=== PATIENT | male | born 1970 | race Caucasian/White ===

== ENCOUNTER 2020-02-28 18:29 | Inpatient (IN) | payer MEDICAID ==
[~2020-02-28] VITALS: Ht 188 cm; Wt 131.5 kg
--- NOTE | 2020-02-28 18:56 | NUR ---
Patient awake alert pain to upper abdomen ,EKG ,hooked in the monitor ,lab drw ,patient non distress @ this time continue to monitor .
[2020-02-28 18:57] LABS: BASOPHILS % (AUTO) 0.3 % (0.0-2.0); EOSINOPHILS % (AUTO) 2.9 % (0.0-6.0); HEMATOCRIT 47 % (39-51); HEMOGLOBIN 15.8 g/dL (13.5-17.5); LYMPHOCYTES # (AUTO) 2.1 /CMM (0.8-4.8); MEAN CORPUSCULAR HGB CONC 34 g/dl (31.0-36.0); MEAN CORPUSCULAR VOLUME 93 fL (80-96); MONOCYTES # (AUTO) 0.5 /CMM (0.1-1.30); MONOCYTES % (AUTO) 6.7 % (2.0-12.0); NEUTROPHILS # (AUTO) 4.3 /CMM (1.8-8.9); NEUTROPHILS % (AUTO) 60.1 % (43.0-81.0); PLATELET COUNT (AUTO) 278 /CMM (150-450); RED BLOOD CELL COUNT(AUTO) 5.01 MIL/uL (4.5-6.0); WHITE BLOOD COUNT (AUTO) 7.1 K/uL (4.3-11.0)
[2020-02-28 19:03] LABS: CARBON DIOXIDE 30 mmol/L (21-32); CHLORIDE 103 mmol/L (98-107); CREATININE 1.1 mg/dL (0.6-1.3); GLUCOSE 119 mg/dL (74-106); POTASSIUM 4.1 mmol/L (3.5-5.1); SODIUM SERUM 143 mmol/L (136-145); UREA NITROGEN, BLOOD 11 mg/dL (7-18)
[2020-02-28 19:09] LABS: ALANINE AMINOTRANSFERASE 30 U/L (12-78); ALBUMIN 4.1 g/dL (3.4-5.0); ALKALINE PHOSPHATASE 57 U/L (46-116); ASPARTATE AMINOTRANSFERASE 20 U/L (15-37); BILIRUBIN,DIRECT 0.2 mg/dL (0.0-0.2); BILIRUBIN,TOTAL 0.8 mg/dL (0.2-1.0); TOTAL PROTEIN, SERUM 7.3 g/dL (6.4-8.2)
--- NOTE | 2020-02-28 19:28 | NUR ---
DR. HAILE SPEAKING WITH DR. LOJA REGARDING ADMISSION
[2020-02-28] MEDS ORDERED: NITROGLYCERIN PACKET 1 GM PACKET TD ONE (19:30)
[2020-02-28] MEDS ORDERED: ASPIRIN 325 MG TABLET PO ONE (19:30)
[2020-02-28] MEDS ORDERED: ASPIRIN EC 325 MG TABLET.DR PO ONE (19:31)
[2020-02-28] MEDS ORDERED: NITROGLYCERIN PACKET 1 GM PACKET ONE (19:31)
[2020-02-28] MEDS ORDERED: ASPIRIN 81 MG TAB.CHEW ONE (19:41)
--- NOTE | 2020-02-28 19:44 | NUR ---
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 MD NOTIFIED.
--- NOTE | 2020-02-28 19:59 | NUR ---
covid swab collected and sent to lab.
[2020-02-28] MEDS ORDERED: ASPIRIN 81 MG TAB.CHEW PO ONE (20:00)
--- NOTE | 2020-02-28 20:22 | NUR ---
PT COVID NEGATIVE PER LAB
--- NOTE | 2020-02-28 20:33 | NUR ---
CALLED RN SUP FOR BED
--- NOTE | 2020-02-28 20:55 | NUR ---
REPORT GIVEN TO CRISTINE ALLAN FOR MARCELLA.
--- NOTE | 2020-02-28 21:11 | NUR ---
PATIENT TAKEN TO ASSIGNED ROOM.
--- NOTE | 2020-02-28 21:15 | NUR ---
RN ADMITTING NOTES PATIENT RECEIVED FROM ER VIA GURNEY ACCOMPANIED BY ER STAFF. PATIENT AMBULATORY AND A/O X 4. STABLE ON RA WITH BREATHING EVEN AND UNLABORED, NO SOB NOTED.NO COMPLAINTS OF CHEST PAIN. BELONGINGS ACCOUNTED FOR. TELE MONITOR PLACED. SKIN INTACT. PATIENT ORIENTED TO ROOM AND STAFF. VITALS TAKEN 143/89, HR 63, RR 18, T 98.4, O2SAT 99%. SAFETY PRECAUTIONS IN PLACE WITH BED IN LOWEST POSITION, CALL LIGHT WITHIN REACH, BREAKS ON, SIDE RAILS UP. WILL CONTINUE TO MONITOR THROUGHOUT THE SHIFT.
[2020-02-28 21:20] VITALS: BP 143/89
[2020-02-28 22:00] VITALS: BP 143/89
--- NOTE | 2020-02-28 22:00 | NUR ---
RN NOTES NOTIFIED MD LOJA ABOUT PATIENT USE OF CPAP MACHINE AT NIGHT AT HOME AND INSULIN PUMP ATTACHED TO PATIENT.
[2020-02-28] MEDS ORDERED: MAG HYDROX/AL HYDROX/SIMETH 30 ML UDC PO PRN (22:30)
[2020-02-28] MEDS ORDERED: ACETAMINOPHEN 325 MG TABLET PO PRN (22:30)
[2020-02-28] MEDS ORDERED: Z GUARD REMEDY 2 OZ OINT TP PRN (22:30)
[2020-02-28] MEDS ORDERED: ONDANSETRON HCL/PF 4 MG/2 ML VIAL IVP PRN (22:30)
[2020-02-28] MEDS ORDERED: ZOLPIDEM TARTRATE 5 MG TABLET PO PRN (22:30)
[2020-02-28] MEDS ORDERED: HYDROCODONE/APAP 5/325MG TABLET PO PRN (22:30)
[2020-02-28] MEDS ORDERED: MAGNESIUM HYDROXIDE 30 ML UDC PO PRN (22:30)
[2020-02-28] MEDS ORDERED: ENOXAPARIN SODIUM 40 MG/0.4 ML DISP.SYRIN SQ SCH (22:30)
[2020-02-28] MEDS ORDERED: DEXTROSE 50%-WATER 50 ML DISP.SYRIN IV PRN (23:00)
[2020-02-28] MEDS ORDERED: *INSULIN REGULAR(HUMULIN R)HUM 100 UNIT/ML VIAL SQ PRN (23:00)
[2020-02-28] MEDS ORDERED: INSULIN REGULAR, HUMAN 100 UNIT/ML 3 ML VIAL SQ PRN (23:00)
[2020-02-29] VITALS: BP 109/55
[2020-02-29 04:00] VITALS: BP 132/69
[2020-02-29 06:46] LABS: BASOPHILS % (AUTO) 0.3 % (0.0-2.0); EOSINOPHILS % (AUTO) 3.2 % (0.0-6.0); HEMATOCRIT 45 % (39-51); HEMOGLOBIN 15.1 g/dL (13.5-17.5); LYMPHOCYTES # (AUTO) 1.7 /CMM (0.8-4.8); LYMPHOCYTES % (AUTO) 24.8 % (20.0-44.0); MEAN CORPUSCULAR HGB CONC 34 g/dl (31.0-36.0); MEAN CORPUSCULAR VOLUME 93 fL (80-96); MONOCYTES # (AUTO) 0.4 /CMM (0.1-1.30); MONOCYTES % (AUTO) 6.6 % (2.0-12.0); NEUTROPHILS # (AUTO) 4.4 /CMM (1.8-8.9); NEUTROPHILS % (AUTO) 65.1 % (43.0-81.0); PLATELET COUNT (AUTO) 248 /CMM (150-450); RED BLOOD CELL COUNT(AUTO) 4.81 MIL/uL (4.5-6.0); WHITE BLOOD COUNT (AUTO) 6.8 K/uL (4.3-11.0)
[2020-02-29 06:57] LABS: CALCIUM, SERUM 8.8 mg/dL (8.5-10.1); CREATININE 0.9 mg/dL (0.6-1.3); MAGNESIUM 2.1 mg/dL (1.8-2.4); PHOSPHORUS 3.9 mg/dL (2.5-4.9); POTASSIUM 3.9 mmol/L (3.5-5.1)
--- NOTE | 2020-02-29 06:58 | NUR ---
RN CLOSING NOTES PATIENT IN BED RESTING, A/O X4. STABLE ON RA WITH BREATHING EVEN AND UNLABORED, NO SOB NOTED. NO SIGNS OF ACUTE DISTRESS. NO COMPLAINTS OF PAIN OR DISCOMFORT AT THE MOMENT. IV LOCATED ON R UPPER ARM #20 SL. TELE MONITOR READING SR. SAFETY PRECAUTIONS IN PLACE WITH BED IN LOWEST POSITION, CALL LIGHT WITHIN REACH, BREAKS ON, SIDE RAILS UP. ALL NEEDS ATTENDED TO. WILL ENDORSE TO ONCOMING SHIFT ABOUT MARCELLA.
--- NOTE | 2020-02-29 07:03 | NUR ---
EDUCATION REVIEWER OPENING NOTE RECEIVED PT AWAKE IN BED AT THIS TIME. A/O X 2-3, NO SOB NOTED, NO S/S OF ANY ACUTE DISTRESS NOTED. NO C/O PAIN AT THIS TIME. RESPIRATIONS ARE EVEN AND UNLABORED WITH EQUAL RISE AND FALL IN CHEST. PT ABLE TO TO MAKE NEEDS KNOWN. IV ACCESS IN LASHAY G#20 SL, PATENT, INTACT AND FLUSHING WELL. PT ON EXTERNAL RADIO DISPATCHER READING SR IN THE 60S. FALL AND SAFETY PRECAUTION IN PLACE AND MAINTAINED AT ALL TIMES. BED IN LOWEST LOCKED POSITION, HOB ELEVATED, RAILS UP X 2, CALL LIGHT WITHIN REACH. WILL CONTINUE TO MONITOR Addendum: 02/29/20 at 1120 by RC VASQUEZ RN EDUCATION REVIEWER OPENING NOTE RECEIVED PT AWAKE IN BED AT THIS TIME. A/O X 4, NO SOB NOTED, NO S/S OF ANY ACUTE DISTRESS NOTED. NO C/O PAIN AT THIS TIME. RESPIRATIONS ARE EVEN AND UNLABORED WITH EQUAL RISE AND FALL IN CHEST. PT ABLE TO TO MAKE NEEDS KNOWN. IV ACCESS IN LASHAY G#20 SL, PATENT, INTACT AND FLUSHING WELL. PT ON EXTERNAL RADIO DISPATCHER READING SR IN THE 60S. FALL AND SAFETY PRECAUTION IN PLACE AND MAINTAINED AT ALL TIMES. BED IN LOWEST LOCKED POSITION, HOB ELEVATED, RAILS UP X 2, CALL LIGHT WITHIN REACH. WILL CONTINUE TO MONITOR
[2020-02-29 07:06] LABS: THYROID STIMULATING HORMONE 4.682 uIU/mL (0.358-3.74)
[2020-02-29] MEDS: BLOOD SUGAR DIAGNOSTIC 1 EACH STRIP VI SCH ×2 (07:12→12:29)
[2020-02-29] MEDS ORDERED: PANTOPRAZOLE 40 MG TABLET.DR PO SCH (07:30)
[2020-02-29 08:00] VITALS: BP 136/62
[2020-02-29] MEDS ORDERED: ASPIRIN 81 MG TAB.CHEW PO SCH (09:00)
[2020-02-29] MEDS ORDERED: ATORVASTATIN 10 MG TABLET PO SCH (09:00)
--- NOTE | 2020-02-29 09:00 | NUR ---
INSERTED NEW IV ACCESS IN LAC G# 18 PER ABHISHEK, CONTACT CLERK DUE TO PT BEING SCHEDULED FOR CT [facility] WITH 3D IMAGE. IV ACCESS, PATENT, INTACT AND FLUCHING WELL. WILL CONTINUE TO MONITOR
[2020-02-29] MEDS ORDERED: PRAV40TA3 PO (09:13)
[2020-02-29] MEDS ORDERED: INSU100V39 SQ (09:13)
[2020-02-29] MEDS ORDERED: FLUO10CA26 PO (09:13)
[2020-02-29] MEDS ORDERED: IOHEXOL-350 100 ML VIAL IV ONE (09:28)
[2020-02-29] MEDS ORDERED: IV NS 0.9% 250 ML IV ONE (09:28)
--- NOTE | 2020-02-29 09:45 | NUR ---
PT TRANSPORTED BY WHEEL CHAIR FOR CT [facility] WITH 3D PROCEDURE AT THIS TIME. CONSENT SIGNED BY PATIENT AND FILED IN CHART. WILL CONTINUE TO MONITOR
[2020-02-29] MEDS ORDERED: METOPROLOL TARTRATE INJ 5 MG/5 ML AMPUL ONE (09:51)
[2020-02-29] MEDS ORDERED: NITROGLYCERIN 0.4 MG/TAB BOTTLE ONE (09:51)
[2020-02-29] MEDS ORDERED: NITROGLYCERIN 0.4 MG/TAB BOTTLE SL ONE (10:00)
[2020-02-29] MEDS ORDERED: METOPROLOL TARTRATE INJ 5 MG/5 ML AMPUL IVP PRN (10:00)
--- NOTE | 2020-02-29 10:19 | NUR ---
PT TRANSPORTED BACK TO UNIT BY WHEEL CHAIR FROM CT [facility] WITH 3D PROCEDURE AT THIS TIME. WILL CONTINUE TO MONITOR
[2020-02-29 16:00] VITALS: BP 134/70
--- NOTE | 2020-02-29 16:40 | NUR ---
PLUGMAN NOTES PT DISCHARGED TO HOME AT THIS TIME. PT IN STABLE CONDITION. DISCHARGE INSTRUCTIONS PROVIDED AND PT VERBALIZE UNDERSTANDING. IV ACCESS IN LASHAY AND LAC REMOVED, PRESSURE APPLIED, SECURE WITH GAUZE AND TAPE. NO BLEEDING, NO SIGN OF INFILTRATION NOTED. ALL BELONGINGS ACCOUNTED FOR, SIGNED BY PT AND RETURNED TO PT. PT ACCOMPANIED TO LOBBY BY [facility]. PT PICKED UP BY [facility], IN PRIVATE CAR
== END 2020-02-29 16:40 | disposition home or self-care (01) | DRG 243 ==
LOC: ER 18:36 → TELE 20:44 → MED 02-29 12:11
PROVIDERS: ADMIT Student in an Organized Health Care Education/Training Program; ATTEND Student in an Organized Health Care Education/Training Program
DX: K21.9 Gastro-esophageal reflux disease without esophagitis (principal); E78.5 Hyperlipidemia, unspecified; I10 Essential (primary) hypertension; G47.33 Obstructive sleep apnea (adult) (pediatric); E10.9 Type 1 diabetes mellitus without complications; E66.9 Obesity, unspecified; Z68.37 Body mass index [BMI] 37.0-37.9, adult
CPT/HCPCS: 36415; 71045-TC; 75574; 80048-TC; 80061-TC; 80076-TC; 82962-TC; 83735-TC; 84100-TC; 84443-TC; 84484-TC; 85025-TC; 87081-TC; 93307-TC; C9803-CS; G0378; J1650; J1815; J3490; J7050; Q9967